=== PATIENT | male | born 1990 | race Hispanic/Latino ===

== ENCOUNTER 2019-01-10 10:33 | Emergency (ER) | payer MEDICAID, OTHER ==
[2019-01-10 10:37] VITALS: BP 114/71
--- NOTE | 2019-01-10 11:51 | Emergency Department Report ---
ED Back Pain/Injury HPI - General Chief Complaint: Back Pain/Injury Stated Complaint: BACK PAIN Time Seen by Provider: 01/10/19 11:24 Source: patient Limitations: No Limitations - History of Present Illness Initial Comments: Ms. Milton is a very pleasant 28-year-old male history of tobacco abuse. For the past 3 weeks he has had left upper posterior back pain in the rhomboid r egion. Improve with CBD oil. His grandmother recently 3 months ago complications of lung cancer. With this 10 year history of tobacco abuse he was concerned for lung issues. Currently pain free. Pain is worse with movement. Pain is worse with palpation of the area. 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 -: Gradual, week(s) (3) Similar Symptoms Previously: No Place: home, work Severity: mild Quality: dull Consistency: constant Worsens With: movement, other (palpation) Context: while lifting, turning/twisting Associated Symptoms: denies other symptoms - Related Data Previous Rx's Medication Instructions Recorded Last Taken Type Cyclobenzaprine [Flexeril] 10 mg PO TID PRN #20 tablet 01/10/19 Unknown Rx Ibuprofen 800 mg PO TID 5 Days #15 tablet 01/10/19 Unknown Rx Allergies Allergy/AdvReac Type Severity Reaction Status Date / Time No Known Allergies Allergy Unverified 01/10/19 10:33 ED Review of Systems ROS: Stated complaint: BACK PAIN Other details as noted in HPI Comment: All other systems reviewed and negative Constitutional: denies: fever, malaise Respiratory: denies: cough Cardiovascular: denies: chest pain ED Past Medical Hx - Past Medical History Previous Medical History?: No - Family History Family history: cancer (lung cancer) - Social History Smoking Status: Current Every Day Smoker Substance Use Type: None - Medications Home Medications: Home Medications Medication Instructions Recorded Confirmed Last Taken Type Cyclobenzaprine [Flexeril] 10 mg PO TID PRN #20 tablet 01/10/19 Unknown Rx Ibuprofen 800 mg PO TID 5 Days #15 tablet 01/10/19 Unknown Rx ED Physical Exam - General Limitations: No Limitations General appearance: alert, in no apparent distress - Head Head exam: Present: atraumatic, normocephalic - Eye Eye exam: Present: normal appearance - ENT ENT exam: Present: mucous membranes moist - Neck Neck exam: Present: normal inspection - Respiratory Respiratory exam: Present: normal lung sounds bilaterally. Absent: respiratory distress, wheezes, rales, rhonchi - Cardiovascular Cardiovascular Exam: Present: regular rate, normal rhythm, normal heart sounds. Absent: systolic murmur, diastolic murmur, rubs, gallop - GI/Abdominal GI/Abdominal exam: Present: soft, normal bowel sounds. Absent: distended, tenderness, guarding, rebound - Rectal Rectal exam: Present: deferred - Extremities Exam Extremities exam: Present: normal inspection - Back Exam Back exam: Present: tenderness, muscle spasm (rhomboid region tenderness touch) - Neurological Exam Neurological exam: Present: alert, oriented X3 - Psychiatric Psychiatric exam: Present: normal affect, normal mood - Skin Skin exam: Present: warm, dry, intact, normal color. Absent: rash ED Course Vital Signs 01/10/19 10:36 Temperature 98.6 F Pulse Rate 73 Respiratory 16 Rate Blood Pressure 114/71 O2 Sat by Pulse 99 Oximetry ED Medical Decision Making - Medical Decision Making Mr. Milton presents with upper back pain back strain. Prescribed ibuprofen and Flexeril. Recommend massage and chiropractic. Critical care attestation.: If time is entered above; I have spent that time in minutes in the direct care of this critically ill patient, excluding procedure time. ED Disposition Clinical Impression: Muscle strain of upper back Disposition: DC-01 TO HOME OR SELFCARE Is pt being admited?: No Does the pt Need Aspirin: No Condition: Stable Instructions: Muscle Strain (ED) Prescriptions: Cyclobenzaprine [Flexeril] 10 mg PO TID PRN #20 tablet PRN Reason: Muscle Spasm Ibuprofen 800 mg PO TID 5 Days #15 tablet Referrals: JOHN CESPEDES MD [Primary Care Provider] - 3-5 Days Forms: Work/School Release Form(ED)
== END 2019-01-10 12:06 | disposition home or self-care (01) ==
LOC: ED 10:33
DX: S29.012A Strain of muscle and tendon of back wall of thorax, initial encounter (principal); F17.200 Nicotine dependence, unspecified, uncomplicated; X50.0XXA Overexertion from strenuous movement or load, initial encounter; Y93.89 Activity, other specified; Y92.69 Other specified industrial and construction area as the place of occurrence of the external cause; Y99.8 Other external cause status
CPT/HCPCS: 99282

== ENCOUNTER 2019-01-24 11:22 | Emergency (ER) | payer OTHER ==
[2019-01-24 11:33] VITALS: BP 124/74
--- NOTE | 2019-01-24 11:33 | Emergency Department Report ---
Blank Doc - Documentation Documentation: This is a 28-year-old male that presents with hemorrhoid pain. Has history of this. This initial assessment/diagnostic orders/clinical plan/treatment(s) is/are subject to change based on patient's health status, clinical progression and re- assessment by fellow clinical providers in the ED. Further treatment and workup at subsequent clinical providers discretion. Patient/guardians urged not to elope from the ED as their condition may be serious if not clinically assessed and managed. Initial orders include: 1- Patient sent to [facility] for further evaluation and treatment
--- NOTE | 2019-01-24 11:56 | Emergency Department Report ---
Chief Complaint: Rectal Pain Stated Complaint: SWOLLEN HEMRROID Time Seen by Provider: 01/24/19 11:32 - HPI History of Present Illness: Mr. Milton is a very pleasant 28 yo male who presents with large hemorrhoid. On brief exam, thrombosed hemorrhoid evident. Recommended outpatient surgical treatment and stool softeners. Referral to general surgeon provided. - Exam Vital Signs: Vital Signs 01/24/19 11:32 Temperature 98.1 F Pulse Rate 85 Respiratory 16 Rate Blood Pressure 124/74 O2 Sat by Pulse 100 Oximetry MSE screening note: Focused history and physical exam performed. Due to findings the following was ordered: ED Disposition for MSE Clinical Impression: Thrombosed external hemorrhoid Disposition: Z-07 MED SCREENING EXAM-LEFT Is pt being admited?: No Does the pt Need Aspirin: No Condition: Stable Instructions: Hemorrhoids (ED) Referrals: ITZEL WETZEL MD [Staff Physician] - [facility]
== END 2019-01-24 12:07 | disposition left against medical advice (07) ==
LOC: ED 11:22
DX: K64.5 Perianal venous thrombosis (principal)
CPT/HCPCS: 99282

== ENCOUNTER 2019-02-23 10:15 | Emergency (ER) | payer OTHER ==
--- NOTE | 2019-02-23 12:04 | Emergency Department Report ---
- General Chief Complaint: Upper Respiratory Infection Stated Complaint: COLD SX Time Seen by Provider: 02/23/19 11:38 Source: patient Mode of arrival: Ambulatory Limitations: No Limitations - History of Present Illness Initial Comments: 28-year-old male with no significant past medical history presents to the hospital complaints of infectious symptoms 4 days. Patient complains of his throat, runny nose, body aches, and a productive cough. No fever reported. Patient did not receive a flu shot. Denies sick contacts or recent travel. Patient taking Motrin and Leni-Hewitt plus without improvement. Patient denies cigarette smoking but does Vape. - Related Data Previous Rx's Medication Instructions Recorded Last Taken Type Cyclobenzaprine [Flexeril] 10 mg PO TID PRN #20 tablet 01/10/19 Unknown Rx Ibuprofen 800 mg PO TID 5 Days #15 tablet 01/10/19 Unknown Rx Ibuprofen [Motrin] 800 mg PO Q8HR PRN #30 tablet 02/23/19 Unknown Rx Pseudoephedrine ER [Sudafed 12 Hr] 120 mg PO BID PRN #20 tablet.er 02/23/19 Unknown Rx guaiFENesin/DEXTROMETHORPHAN 1 each PO BID PRN #20 tab.er.12h 02/23/19 Unknown Rx [Mucinex Dm ER 1,200-60 mg Tab] Allergies Allergy/AdvReac Type Severity Reaction Status Date / Time No Known Allergies Allergy Verified 02/23/19 10:15 ED Review of Systems ROS: Stated complaint: COLD SX Other details as noted in HPI Comment: All other systems reviewed and negative ED Past Medical Hx - Past Medical History Previous Medical History?: No - Surgical History Past Surgical History?: No - Social History Smoking Status: Never Smoker Substance Use Type: None - Medications Home Medications: Home Medications Medication Instructions Recorded Confirmed Last Taken Type Cyclobenzaprine [Flexeril] 10 mg PO TID PRN #20 tablet 01/10/19 Unknown Rx Ibuprofen 800 mg PO TID 5 Days #15 tablet 01/10/19 Unknown Rx Ibuprofen [Motrin] 800 mg PO Q8HR PRN #30 tablet 02/23/19 Unknown Rx Pseudoephedrine ER [Sudafed 12 Hr] 120 mg PO BID PRN #20 tablet.er 02/23/19 Unknown Rx guaiFENesin/DEXTROMETHORPHAN 1 each PO BID PRN #20 tab.er.12h 02/23/19 Unknown Rx [Mucinex Dm ER 1,200-60 mg Tab] ED Physical Exam - General Limitations: No Limitations - Other Other exam information: General: No limitations, patient is alert in no acute distress Head exam: Atraumatic, normocephalic Eyes exam: Normal appearance ENT: Moist mucous membrane, normal oropharynx without exudate Neck exam: Normal inspection, full range of motion, no meningismus nontender Respiratory exam: Clear to auscultation bilateral, no wheezes, rales, crackles Cardiovascular: Normal rate and rhythm, normal heart sounds Abdomen: Soft, nondistended, and nontender, with normal bowel sounds, no rebound, or guarding Extremity: Full range of motion normal inspection no deformity Back: Normal Inspection, full range of motion, no tenderness Neurologic: Alert, oriented x3, cranial nerves intact, no motor or sensory deficit Psychiatric: normal affect, normal mood Skin: Warm, dry, intact ED Course Vital Signs 02/23/19 10:25 Temperature 97.9 F Pulse Rate 60 Respiratory 16 Rate Blood Pressure 119/72 [Left] O2 Sat by Pulse 97 Oximetry ED Medical Decision Making - Radiology Data Radiology results: report reviewed ROUTINE CHEST, TWO VIEWS: HISTORY: Cough. The trachea, heart, mediastinal contour, lung rubio and bony thorax are unremarkable. IMPRESSION: Unremarkable chest x-ray. - Medical Decision Making lung clear cxr and vitals chantel tx and f/u advised for uri - Differential Diagnosis viral syndrome, pneumonia, bronchitis Critical Care Time: No Critical care attestation.: If time is entered above; I have spent that time in minutes in the direct care of this critically ill patient, excluding procedure time. ED Disposition Clinical Impression: URI (upper respiratory infection) Disposition: DC- TO HOME OR SELFCARE Is pt being admited?: No Condition: Stable Instructions: Upper Respiratory Infection (ED) Additional Instructions: Take the medication as prescribed. Follow up with your doctor or the clinic/doctor provided. Return if symptoms worsen as indicated by your discharge instructions Prescriptions: Ibuprofen [Motrin] 800 mg PO Q8HR PRN #30 tablet PRN Reason: Pain , Severe (7-10) guaiFENesin/DEXTROMETHORPHAN [Mucinex Dm ER 1,200-60 mg Tab] 1 each PO BID PRN #20 tab.er.12h PRN Reason: Cough Pseudoephedrine ER [Sudafed 12 Hr] 120 mg PO BID PRN #20 tablet.er PRN Reason: Nasal Congestion Referrals: DARIANA SHELDON MD [Primary Care Provider] - 3-5 Days [facility] [Provider Group] - 3-5 Days Time of Disposition: 12:57
--- NOTE | 2019-02-23 12:31 | XRay Report ---
ROUTINE CHEST, TWO VIEWS: HISTORY: Cough. The trachea, heart, mediastinal contour, lung rubio and bony thorax are unremarkable. IMPRESSION: Unremarkable chest x-ray.
[2019-02-23 13:17] VITALS: BP 120/71
== END 2019-02-23 13:15 | disposition home or self-care (01) ==
LOC: ED 10:15
DX: J06.9 Acute upper respiratory infection, unspecified (principal)
CPT/HCPCS: 71046